=== PATIENT | male | born 1985 | race Caucasian/White ===

== ENCOUNTER 2019-08-28 11:48 | Emergency (ER) | payer OTHER ==
[2019-08-28 11:58] VITALS: BP 126/74
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
== END 2019-08-28 12:40 | disposition home or self-care (01) ==
LOC: ED 11:48
DX: S09.90XA Unspecified injury of head, initial encounter (principal); S01.01XA Laceration without foreign body of scalp, initial encounter; S00.81XA Abrasion of other part of head, initial encounter; W22.09XA Striking against other stationary object, initial encounter
CPT/HCPCS: 99281; 99282